=== PATIENT | male | born 1965 | race Caucasian/White ===

== ENCOUNTER → 2016-10-19 | Outpatient (CLI) | payer BC, OTHER ==
[~2016-10-19] VITALS: Ht 170.2 cm; Wt 97.5 kg
[~2016-10-19] MED LIST: AMLO5TAB2 PO; LOSA100T37 PO; MULT1TAB10 PO; NS 1,000 ML IV ONE; POTA10CA PO; VALT1TAB PO; VITA-130 PO
--- NOTE | 2016-10-19 14:42 | ROOR ---
Patient Name: Doug Dangelo Procedure Date: 10/19/2016 2:23 PM Date of : 1965 Age: 51 Room: [facility] Gender: Male Note Status: Finalized Procedure: Colonoscopy to Cecum + Cold Snare Polypectomy Indications: Screening for colorectal malignant neoplasm Providers: Elias Camacho MD Referring MD: SHARITA DEL ROSARIO MD Requesting Provider: Medicines: Monitored Anesthesia Care Complications: No immediate complications. Procedure: Pre-Anesthesia Assessment: - The heart rate, respiratory rate, oxygen saturations, blood pressure, adequacy of pulmonary ventilation, and response to care were monitored throughout the procedure. The Colonoscope was introduced through the anus and advanced to the cecum, identified by appendiceal orifice and ileocecal valve. The colonoscopy was performed without difficulty. The patient tolerated the procedure well. The quality of the bowel preparation was excellent. Findings: The perianal and digital rectal examinations were normal. Non-bleeding internal hemorrhoids were found during retroflexion. The hemorrhoids were small and Grade I (internal hemorrhoids that do not prolapse). Multiple small and large-mouthed diverticula were found in the recto-sigmoid colon, sigmoid colon and descending colon. A small polyp was found at 30 cm proximal to the anus. The polyp was sessile. The polyp was removed with a cold snare. Resection and retrieval were complete. A medium polyp was found in the mid ascending colon. The polyp was sessile. The polyp was removed with a cold snare. Resection and retrieval were complete. The exam was otherwise without abnormality on direct and retroflexion views. Impression: - Non-bleeding internal hemorrhoids. - Diverticulosis in the recto-sigmoid colon, in the sigmoid colon and in the descending colon. - One small polyp at 30 cm proximal to the anus, removed with a cold snare. Resected and retrieved. - One medium polyp in the mid ascending colon, removed with a cold snare. Resected and retrieved. - The examination was otherwise normal on direct and retroflexion views. - The exam was otherwise normal to the cecum. Recommendation: - Patient has a contact number available for emergencies. The signs and symptoms of potential delayed complications were discussed with the patient. Return to normal activities tomorrow. Written discharge instructions were provided to the patient. - High fiber diet. - Discharge patient to home. - Continue present medications. - Await pathology results. - Telephone GI clinic for pathology results in 1 week. - Check Portal Online for Path Results.([email or web address]) - Repeat colonoscopy for surveillance based on pathology results. - Return to referring physician. - The findings and recommendations were discussed with the patient's family. Elias Camacho MD Elias Camacho MD 10/19/2016 2:42:12 PM This report has been signed electronically. Number of Addenda: 0 Note Initiated On: 10/19/2016 2:23 PM Estimated Blood Loss: Estimated blood loss: none.
[2016-10-19 15:21] VITALS: BP 145/92
== END | disposition home or self-care (01) ==
LOC: M OPP 13:37
PROVIDERS: ATTEND Internal Medicine Gastroenterology
DX: Z12.11 Encounter for screening for malignant neoplasm of colon (principal); D12.5 Benign neoplasm of sigmoid colon; D12.2 Benign neoplasm of ascending colon; K64.0 First degree hemorrhoids; K57.30 Diverticulosis of large intestine without perforation or abscess without bleeding; I10 Essential (primary) hypertension; G47.30 Sleep apnea, unspecified; R06.83 Snoring; Z80.42 Family history of malignant neoplasm of prostate; Z88.8 Allergy status to other drugs, medicaments and biological substances; Z79.899 Other long term (current) drug therapy

== ENCOUNTER → 2021-02-12 | Outpatient (CLI) | payer BC, OTHER ==
[~2021-02-12] MED LIST changes: +AMLO1TAB24 PO; -AMLO5TAB2 PO; +CARV6.25 PO; +KLOR10TA76 PO; -LOSA100T37 PO; +LOSA100T5 PO; -NS 1,000 ML IV ONE; +PANT40TA29; -POTA10CA PO; +SPIR-10 PO; +VALS1TAB68 PO; -VITA-130 PO; +VITA-243 PO
== END ==
LOC: M LABSMTC 09:54
PROVIDERS: ATTEND Anesthesiology
DX: Z01.812 Encounter for preprocedural laboratory examination (principal)

== ENCOUNTER 2021-02-17 10:22 | Day surgery (SDC) | payer BC, OTHER ==
[~2021-02-17] VITALS: Ht 170.2 cm; Wt 94.8 kg
[~2021-02-17 10:22] MED LIST changes: -KLOR10TA76 PO; +LR 1,000 ML IV ONE; +POTA-136 PO
[2021-02-17] MEDS ORDERED: dexameTHASONE 4 MG/ML 1ML VIAL (J1100 PER 1MG) As Ordered ONE (10:46)
[2021-02-17] MEDS ORDERED: KETOROLAC 60MG 2ML VIAL As Ordered ONE (10:46)
[2021-02-17] MEDS ORDERED: fentaNYL 250 MCG/5 ML INJECTION (J3010) As Ordered ONE (10:46)
[2021-02-17] MEDS ORDERED: ROCURONIUM BROMIDE 50 MG/5 ML VIAL As Ordered ONE ×2 (10:46→13:22)
[2021-02-17] MEDS ORDERED: LIDOCAINE 2% 100MG/5ML SDV (FOR ANES.) As Ordered ONE (10:46)
[2021-02-17] MEDS ORDERED: ONDANSETRON 4MG/2ML VIAL As Ordered ONE (10:46)
[2021-02-17] MEDS ORDERED: MIDAZOLAM INJ 2MG/2ML VIAL (J2250 PER 1MG) As Ordered ONE (10:46)
[2021-02-17] MEDS ORDERED: propofoL 200 MG/20 ML VIAL As Ordered ONE (10:46)
[2021-02-17] MEDS ORDERED: THERTAB52 PO (11:05)
[2021-02-17] MEDS ORDERED: PANT40TA29 PO (11:05)
[2021-02-17] MEDS ORDERED: VALA1TAB5 PO (11:05)
[2021-02-17] MEDS ORDERED: BUPIVACAINE HCL 0.25% 30ML VIAL As Ordered ONE (11:59)
[2021-02-17] MEDS ORDERED: ACETAMINOPHEN 1000MG 100ML IV BTL (OFIRMEV) (J0131 PER 10MG) As Ordered ONE (12:56)
[2021-02-17] MEDS ORDERED: GLYCOPYRROLATE INJ 0.2 MG/ML 2 ML VIAL As Ordered ONE (13:06)
[2021-02-17] MEDS ORDERED: ePHEDrine SULFATE 25 MG/5 ML(5MG/ML) SYRINGE As Ordered ONE (13:06)
[2021-02-17] MEDS ORDERED: SUGAMMADEX SODIUM 500 MG/5 ML VIAL (BRIDION) As Ordered ONE (13:13)
[2021-02-17] MEDS ORDERED: NORCO, ANEXSIA 5/325MG TABLET (HYDROcodone/ACETAMINOPHEN) PO PRN (15:05)
[2021-02-17] MEDS ORDERED: LR 1,000 ML IV SCH (15:05)
[2021-02-17] MEDS ORDERED: ONDANSETRON 4MG/2ML VIAL IV PRN (15:05)
[2021-02-17] MEDS ORDERED: METOCLOPRAMIDE INJ 10MG/2ML VIAL (J2765 PER 1) IV PRN (15:05)
[2021-02-17] MEDS ORDERED: fentaNYL 100 MCG/2 ML INJECTION (J3010) IV PRN (15:05)
[2021-02-17] MEDS ORDERED: IBUPROFEN 600MG TAB PO PRN (15:15)
[2021-02-17] MEDS ORDERED: ACETAMINOPHEN TAB 650MG DOSE (2X325MG) PO PRN (15:15)
[2021-02-17 16:30] VITALS: BP 127/73
--- NOTE | 2021-02-18 11:09 | RO ---
OPERATIVE NOTE DATE OF OPERATION: 02/17/2021 PREOPERATIVE DIAGNOSIS: Symptomatic gallstones. POSTOPERATIVE DIAGNOSIS: Symptomatic gallstones. PROCEDURE PERFORMED: Laparoscopic cholecystectomy. SURGEON: Mazin Sanchez MD ANESTHESIA: General. INDICATIONS FOR PROCEDURE: The patient is a 55-year-old man who has had a couple episodes of upper abdominal discomfort. Previous CT scan had shown gallstone in the neck of the gallbladder. He is now for laparoscopic cholecystectomy. DESCRIPTION OF PROCEDURE: The patient was brought to the operating room and placed on the table in supine position. He was placed under general endotracheal anesthesia. The patient's abdomen was prepped and draped in sterile fashion. 0.25% Marcaine was infiltrated at each of the trocar sites as needed. A short incision was made in left upper quadrant and Veress needle was inserted. After positive hanging drop test a 5 mm port was placed over the scope and this was advanced into the abdominal wall. Initial examination showed no evidence of Veress needle or trocar injury. The liver was noted and appeared normal. A portion of the stomach was seen. Portions of the small and large bowel were seen and appeared normal. An 11 mm port was placed just above the umbilicus along the midline. Two 5 mm ports were placed in the right upper quadrant. The patient was tilted to reverse Trendelenburg position and rolled slightly to the left. Graspers were inserted. The gallbladder was grasped and elevated. Dissection took place at the gallbladder neck using the Hook cautery. Fibrofatty tissues were opened and with careful dissection the cystic duct and cholecystic artery were clearly identified. Both structures were then doubly clipped with hemoclips and divided. The gallbladder was then dissected free from the gallbladder bed using the cautery. In the course of manipulating the gallbladder a very small perforation occurred from the grasper at the fundus. The freeing of the gallbladder was completed and the gallbladder was placed in an Endopouch. The right upper quadrant was then irrigated and inspected. There was no evidence of bile leak or any further bleeding. The patient was returned to a flat position. The abdomen was deflated and trocars were removed. The gallbladder was recovered through the supraumbilical incision. A small stone or stones were palpable in the gallbladder neck. The gallbladder was sent for permanent pathology. The fascia at the supraumbilical site was closed with running suture of 2-0 PDS. The skin incisions were all closed with buried 4-0 Vicryl and Steri-Strips. Light dressings were applied. The patient tolerated the procedure well without apparent complication. He was awakened in the operating room, extubated and moved to the recovery room in stable condition. TONY
== END 2021-02-17 16:31 | disposition home or self-care (01) ==
LOC: M SDC 10:22
PROVIDERS: ATTEND Surgery
DX: K80.10 Calculus of gallbladder with chronic cholecystitis without obstruction (principal); I10 Essential (primary) hypertension; G47.33 Obstructive sleep apnea (adult) (pediatric); Z88.5 Allergy status to narcotic agent; Z79.899 Other long term (current) drug therapy
CPT/HCPCS: 47562; 88304; J0131; J1100; J1885; J2250; J2405; J3010

== ENCOUNTER → 2022-05-05 | Outpatient (CLI) | payer BC, OTHER ==
[~2022-05-05] MED LIST changes: -LR 1,000 ML IV ONE; +PANT40TA29 PO; +THERTAB52 PO; +VALA1TAB5 PO
== END ==
LOC: M LABSMTC 09:29
PROVIDERS: ATTEND Anesthesiology
DX: Z01.812 Encounter for preprocedural laboratory examination (principal); Z11.52 Encounter for screening for COVID-19

== ENCOUNTER 2022-05-10 10:43 | Day surgery (SDC) | payer BC, OTHER ==
[~2022-05-10] VITALS: Ht 170.2 cm; Wt 100.2 kg
[~2022-05-10 10:43] MED LIST changes: +NS 1,000 ML IV ONE
[2022-05-10] MEDS ORDERED: propofoL 200 MG/20 ML VIAL As Ordered ONE (11:58)
[2022-05-10 12:59] VITALS: BP 168/91
== END 2022-05-10 13:14 | disposition home or self-care (01) ==
LOC: M OPP 10:43
PROVIDERS: ATTEND Internal Medicine Gastroenterology
DX: Z86.010 Personal history of colon polyps (principal); K63.5 Polyp of colon; K64.0 First degree hemorrhoids; I10 Essential (primary) hypertension; G47.30 Sleep apnea, unspecified; Z88.5 Allergy status to narcotic agent; Z79.899 Other long term (current) drug therapy

== ENCOUNTER → 2025-03-07 | Outpatient (REF) ==
[~2025-03-07] MED LIST changes: -NS 1,000 ML IV ONE
== END ==
LOC: M PLAIMG 12:55
PROVIDERS: ATTEND Internal Medicine
DX: R07.9 Chest pain, unspecified (principal); R06.02 Shortness of breath